=== PATIENT | female | born 1950 | race Caucasian/White ===

== ENCOUNTER 2017-02-25 13:16 | Outpatient (CLI) | payer OTHER ==
--- NOTE | 2017-03-08 14:24 | Mammography Report ---
DIGITAL SCREENING MAMMOGRAM: 02/25/2017 CLINICAL INDICATION: A 66-year-old for screening. The patient reports having had previous films in [place], [place], but films are not yet availab le for direct comparison. If they become available, an addendum will be issued. Otherwise, this steven l serve as a new baseline. TECHNIQUE: Routine CC and MLO projections were obtained of the breasts. FINDINGS: The breasts demonstrate scattered fibroglandular densities bilaterally. Coarse and puncta te, typically benign calcifications are present. No suspicious masses, clustered microcalcifications , or regions of architectural distortion are identified. IMPRESSION: BENIGN FINDINGS. RECOMMENDATION: Routine annual screening unless otherwise clinically indicated. BIRADS CATEGORY 2 - BENIGN FINDINGS. STANDARD QUALIFYING STATEMENTS 1. This examination was reviewed with the aid of Computer-Aided Detection (CAD). 2. A negative or benign imaging report should not delay biopsy if clinically suspicious findings are present. Consider surgical consultation if warranted. More than 5% of cancers are not identified by i maging. 3. Dense breasts may obscure an underlying neoplasm. JOB #: [id number] EXT JOB #:[id number]
== END 2017-02-25 13:17 | disposition home or self-care (01) ==
LOC: DI.N 13:16
PROVIDERS: ATTEND Family Medicine
DX: Z12.31 Encounter for screening mammogram for malignant neoplasm of breast (principal)
CPT/HCPCS: 77067

== ENCOUNTER 2019-04-07 08:33 | Outpatient (CLI) | payer BC ==
--- NOTE | 2019-04-07 12:41 | Mammography Report ---
Reason: SCREENING MAMMO Procedure Date: 04/07/2019 Accession Number: [id number] / [id number] Procedure: MGN - Screening Mammo Dig Bilat CPT Code: FULL RESULT: EXAM: Screening Mammo Dig Bilat DATE: 04/07/2019 8:57 AM CLINICAL HISTORY: Routine screening TECHNIQUE: (B) - Bilateral CC and MLO views were obtained. COMPARISON: 02/25/2017, 11/18/2015, 11/01/2015, and 04/13/2011 PARENCHYMAL PATTERN: (D) - The breasts demonstrate heterogeneously dense fibroglandular parenchyma bilaterally. FINDINGS: No significant interval change. Scattered benign-appearing calcifications are stable. There are no suspicious masses, micro-calcifications, or areas of distortion. IMPRESSION: Negative examination. BI-RADS category 1. RECOMMENDATION: (ANNUAL) - Recommend routine annual screening mammography. BI-RADS CATEGORY: (1) - Negative. STANDARD QUALIFYING STATEMENTS: 1. This examination was not reviewed with the aid of Computer-Aided Detection (CAD). 2. A negative or benign imaging report should not preclude biopsy if clinically suspicious findings are present. 3. Dense breasts may obscure an underlying neoplasm. 4. This examination was reviewed without the aid of 3D breast imaging (tomosynthesis).
== END 2019-04-07 08:34 | disposition home or self-care (01) ==
LOC: DI.N 08:33
PROVIDERS: ATTEND Nurse Practitioner
DX: Z12.31 Encounter for screening mammogram for malignant neoplasm of breast (principal)
CPT/HCPCS: 77067

== ENCOUNTER 2019-06-08 20:16 | Emergency (ER) | payer MEDICARE, BC ==
--- NOTE | 2019-06-08 20:31 | ED Physician Documentation ---
PD HPI ABD PAIN - Stated complaint Stated Complaint: RT FLANK PAIN, VOMITTING, CHILLS - Chief complaint Chief Complaint: Abd Pain - History obtained from History obtained from: Patient - History of Present Illness Timing - onset: Today Timing - duration: Days (1) Timing - details: Abrupt onset Severity Comments: severe Quality: Sharp, Pain, Other (R flak) Location: Other (R flank) Radiation: Other (R groin) Improved by: Other (heating pad at first then persistent) Associated symptoms: Nausea, Vomiting. No: Fever, Hematemesis, Diarrhea, Constipation, Melena, Hematochezia, Dysuria, Hematuria, Chest pain, Dizzy, Near syncope / syncope, Loss of appetite, Weight loss, Vaginal bleeding Similar symptoms before: Diagnosis (similar to when she had a kidney stone 10 years ago) Recently seen: Not recently seen - Treatment prior to arrival Treatment prior to arrival: alleve Review of Systems Ten Systems: 10 systems reviewed and negative Constitutional: denies: Fever, Chills Nose: reports: Reviewed and negative Throat: reports: Reviewed and negative GI: reports: Nausea, Vomiting. denies: Abdominal Pain, Abdominal Swelling, Constipation, Diarrhea, Hematemesis, Bloody / black stool : denies: Dysuria, Frequency, Hesitancy, Hematuria Skin: reports: Reviewed and negative Musculoskeletal: reports: Back pain. denies: Extremity pain, Extremity swelling, Joint swelling Neurologic: denies: Generalized weakness, Focal weakness, Numbness Endocrine: reports: Reviewed and negative Immunocompromised: reports: Reviewed and negative PD PAST MEDICAL HISTORY - Past Medical History Past Medical History: Yes - Present Medications Home Medications: Ambulatory Orders Medication Instructions Recorded Confirmed Ondansetron Odt [Zofran] 4 mg TL Q6H PRN #10 tablet 06/08/19 Oxycodone HCl/Acetaminophen 1 - 2 each PO Q6H PRN #14 tablet 06/08/19 [Percocet 5-325 mg Tablet] - Allergies Allergies/Adverse Reactions: Allergies Allergy/AdvReac Type Severity Reaction Status Date / Time No Known Drug Allergies Allergy Verified 06/08/19 20:50 PD ED PE NORMAL - Vitals Vital signs reviewed: Yes - General General: Alert and oriented X 3, No acute distress, Well developed/nourished - HEENT HEENT: Atraumatic, Pharynx benign - Neck Neck: Supple, no meningeal sign, No JVD - Cardiac Cardiac: RRR - Respiratory Respiratory: No respiratory distress - Abdomen Abdomen: Soft, Non tender, Non distended - Female Female : Deferred - Rectal Rectal: Deferred - Derm Derm: Normal color, Warm and dry, No rash - Neuro Neuro: Alert and oriented X 3 Eye Opening: Spontaneous Motor: Obeys Commands Verbal: Oriented GCS Score: 15 - Psych Psych: Normal mood, Normal affect PD ED PE EXPANDED - Back Back: Normal ROM, CVA TTP right. No: Vertebral tenderness, Soft tissue tenderness Results - Vitals Vitals: Vital Signs - 24 hr 06/08/19 06/08/19 06/08/19 20:22 21:33 22:31 Temperature 36.7 C Heart Rate 53 L 65 65 Respiratory 18 15 15 Rate Blood Pressure 159/84 H 117/64 141/73 H O2 Saturation 98 98 95 06/08/19 06/08/19 22:43 23:45 Temperature Heart Rate 54 L 60 Respiratory 15 15 Rate Blood Pressure 108/60 113/56 L O2 Saturation 95 96 Oxygen O2 Source Room air - Labs Labs: Laboratory Tests 06/08/19 06/08/19 06/08/19 20:40 20:40 20:40 WBC 11.1 H RBC 4.87 Hgb 14.3 Hct 44.3 MCV 91.0 MCH 29.4 MCHC 32.3 RDW 13.1 Plt Count 271 MPV 9.3 Neut # (Auto) 7.0 H Lymph # (Auto) 3.1 Morris # (Auto) 0.8 Eos # (Auto) 0.2 Baso # (Auto) 0.1 Absolute Nucleated RBC 0.00 Nucleated RBC % 0.0 Sodium 138 Potassium 3.7 Chloride 102 Carbon Dioxide 24 Anion Gap 12.0 BUN 14 Creatinine 0.9 Estimated GFR (MDRD) 62 L Glucose 232 H Lactic Acid 2.4 H Calcium 9.9 Total Bilirubin 0.7 AST 32 ALT 43 Alkaline Phosphatase 74 Total Protein 7.5 Albumin 4.3 Globulin 3.2 Albumin/Globulin Ratio 1.3 Lipase 68 H Urine Color Urine Clarity Urine pH Ur Specific Jackson Urine Protein Urine Glucose (UA) Urine Ketones Urine Occult Blood Urine Nitrite Urine Bilirubin Urine Urobilinogen Ur Leukocyte Esterase Urine RBC Urine WBC Ur Squamous Epith Cells Urine Bacteria Urine Mucus Ur Microscopic Review Urine Culture Comments 06/08/19 21:00 WBC RBC Hgb Hct MCV MCH MCHC RDW Plt Count MPV Neut # (Auto) Lymph # (Auto) Morris # (Auto) Eos # (Auto) Baso # (Auto) Absolute Nucleated RBC Nucleated RBC % Sodium Potassium Chloride Carbon Dioxide Anion Gap BUN Creatinine Estimated GFR (MDRD) Glucose Lactic Acid Calcium Total Bilirubin AST ALT Alkaline Phosphatase Total Protein Albumin Globulin Albumin/Globulin Ratio Lipase Urine Color YELLOW Urine Clarity CLEAR Urine pH 6.0 Ur Specific Jackson 1.025 Urine Protein NEGATIVE Urine Glucose (UA) >=1000 H Urine Ketones 15 H Urine Occult Blood MODERATE H Urine Nitrite NEGATIVE Urine Bilirubin NEGATIVE Urine Urobilinogen 0.2 (NORMAL) Ur Leukocyte Esterase NEGATIVE Urine RBC 11-25 H Urine WBC 0-3 Ur Squamous Epith Cells FEW Squamous Urine Bacteria Rare Urine Mucus Few Strands Ur Microscopic Review INDICATED Urine Culture Comments NOT INDICATED PD MEDICAL DECISION MAKING - ED course Complexity details: re-evaluated patient, considered differential, d/w patient, d/w family ED course: ddx- AAA, kidney stone, back muscle strain, pyelonephritis 68 y/o F with R flank pain consistent with a kidney stone. Given antiemetics, analgesics, labs and urine pending and will obtain CT CT confirms small 3mm Kidney stone at the R UPJ. No evidence of UTI on urine. Pt was nauseous after narcotics for pain thus given multiple doses of antiemetics and is now feeling better. Tolerating PO zofran. Her pain is controlled. I discussed plans for f/u to obtain Urology referral and pt given analgescis and antiemetics for home. Discussed return precautions in case of worsening or new concerning symptoms. Departure - Departure Disposition: 01 Home, Self Care Clinical Impression: Kidney stone, Pulmonary nodule Condition: Stable Record reviewed to determine appropriate education?: Yes Instructions: Kidney Stones Follow-Up: Tatum Arroyo ARNP, [employer] [Primary Care Provider] - Within 1 week Prescriptions: Ondansetron Odt [Zofran] 4 mg TL Q6H PRN #10 tablet PRN Reason: Nausea / Vomiting Oxycodone HCl/Acetaminophen [Percocet 5-325 mg Tablet] 1 - 2 each PO Q6H PRN #14 tablet PRN Reason: pain Comments: You have a Right sided 3mm kidney stone at the junction of your bladder which is causing your pain. This should pass on its own. Take ibuprofen or alleve as needed if pain is moderate and take percocet if pain is severe or not improving with NSAIDs. You can also take ondansetron as needed for nausea and or vomiting. If worsening symptoms or fever return to the ED. We found some incidental lung nodules and a liver lesion on your CT scan which may be benign but should be monitored and followed up by your regular doctor. Discharge Date/Time: 06/09/19 00:34
[2019-06-08] MEDS ORDERED: ONDANSETRON 4 MG/2 ML VIAL IVP STA (20:40)
[2019-06-08] MEDS ORDERED: MORPHINE 2 MG/ML CARPUJECT IVP STA (20:40)
[2019-06-08 20:50] LABS: BASOPHILS # (AUTO) 0.1 10^3/uL (0.0-0.1); BASOPHILS % (AUTO) 0.5 %; EOSINOPHILS # (AUTO) 0.2 10^3/uL (0.0-0.7); EOSINOPHILS % (AUTO) 1.5 %; HGB - HEMOGLOBIN 14.3 g/dL (12.0-16.0); LYMPHOCYTES # (AUTO) 3.1 10^3/uL (1.5-3.5); LYMPHOCYTES % (AUTO) 27.8 %; MEAN CORPUSCULAR HEMOGLOBIN 29.4 pg (27.0-31.0); MEAN CORPUSCULAR HGB CONC 32.3 g/dL (32.0-36.0); MEAN PLATELET VOLUME 9.3 fL (7.9-10.8); MONOCYTES # (AUTO) 0.8 10^3/uL (0.0-1.0); MONOCYTES % (AUTO) 7.2 %; NEUTROPHILS % (AUTO) 62.6 %; PLT - PLATELET COUNT 271 10^3/uL (130-450); RED BLOOD COUNT 4.87 10^6/uL (4.20-5.40); RED CELL DISTRIBUTION WIDTH 13.1 % (12.0-15.0); WHITE BLOOD COUNT 11.1 x10^3/uL (4.8-10.8)
[2019-06-08 21:03] LABS: ALBUMIN 4.3 g/dL (3.2-5.5); ALBUMIN/GLOBULIN RATIO 1.3 (1.0-2.2); BILIRUBIN,TOTAL 0.7 mg/dL (0.2-1.0); CALCIUM 9.9 mg/dL (8.5-10.3); CREATININE 0.9 mg/dL (0.4-1.0); TOTAL PROTEIN 7.5 g/dL (6.7-8.2)
[2019-06-08 21:17] LABS: BILIRUBIN,URINE NEGATIVE (NEGATIVE); GLUCOSE, URINE (UA) >=1000 mg/dL (NEGATIVE); KETONES,URINE (UA) 15 mg/dL (NEGATIVE); LEUKOCYTE ESTERASE, URINE NEGATIVE (NEGATIVE); NITRITE,URINE NEGATIVE (NEGATIVE); OCCULT BLOOD,URINE MODERATE (NEGATIVE); PROTEIN,URINE NEGATIVE (NEGATIVE); UROBILINOGEN,URINE 0.2 (NORMAL) E.U./dL (NORMAL)
[2019-06-08] MEDS ORDERED: HYDROmorphone 1 MG/ML CARPUJECT IVP STA (21:24)
[2019-06-08 21:36] LABS: CLARITY,URINE CLEAR (CLEAR)
[2019-06-08 21:37] LABS: BACTERIA,URINE Rare /HPF (None Seen); SQUAMOUS EPITHELIAL CELL,UR FEW Squamous (<= Few)
[2019-06-08 21:38] LABS: MUCUS,URINE Few Strands
--- NOTE | 2019-06-08 21:52 | CT Report ---
Reason: R flank pain, suspected kidney stone Procedure Date: 06/08/2019 Accession Number: [id number] / [id number] Procedure: CT - Abdomen/Pelvis WO CPT Code: Final Report FULL RESULT: EXAM: CT ABDOMEN AND PELVIS (CT KUB) EXAM DATE: 06/08/2019 09:09 PM. CLINICAL HISTORY: R flank pain, suspected kidney stone. COMPARISONS: None. TECHNIQUE: Routine axial helical CT imaging was performed through the abdomen and pelvis without IV contrast. Reconstructions: Coronal and sagittal. In accordance with CT protocol optimization, one or more of the following dose reduction techniques were utilized for this exam: automated exposure control, adjustment of mA and/or KV based on patient size, or use of iterative reconstructive technique. FINDINGS: A 6 mm subpleural nodule is partially imaged in the left lower lobe. Subpleural reticulations are seen bilaterally. Linear calcifications are seen in the lingula measuring up to 1 cm. Bibasilar dependent atelectasis is also seen. The visible heart is normal in size. There is no pericardial effusion. A somewhat irregular hypoattenuating lesion is seen in the left hepatic lobe measuring 2.1 x 1.3 cm. A subjacent subcapsular hypoattenuating lesion is also seen which measures 0.8 x 1.3 cm no additional intrahepatic lesions are seen on this noncontrast exam. There is no intrahepatic or extrahepatic biliary dilatation. The gallbladder is normal. Multiple calcifications are seen throughout the spleen, likely representing calcified granulomas. The pancreas is within normal limits. The adrenal glands are normal. Mild right hydronephrosis is seen with pronounced dilatation of the proximal right ureter/extrarenal pelvis and more mild dilatation of the remaining portion of the ureter. A 3 mm calculus is seen at the right ureteropelvic junction. No additional ureteral calculi are seen on the right. There are no right renal calculi. Mild right perinephric fat stranding is seen. No calculi are seen in the left renal collecting system. There is no left hydronephrosis. No left perinephric fat stranding is seen. 2 metallic surgical clips are seen in the pelvis. Multiple phleboliths are seen in the pelvis. The bladder is largely decompressed. The intestines are normal in caliber and position. There is diverticulosis in the distal descending and sigmoid colon without evidence of diverticulitis. The appendix is not visible. No free intraperitoneal air or pneumatosis is seen. There is no ascites. No lymphadenopathy is seen. The abdominal aorta is normal in course and caliber. Atherosclerotic calcifications are incidentally seen. Degenerative changes are seen in the imaged portions of the thoracolumbar spine. No acute fracture or dislocation is seen. IMPRESSION: 1. 3 mm calculus at the right ureteral vesicular junction resulting in right hydroureteronephrosis and mild perinephric fat stranding. 2. No additional calculi in the renal collecting systems. 3. Hypoattenuating lesions in the left hepatic lobe. Consider further evaluation of these lesions with an MRI abdomen with and without contrast. 4. Diverticulosis. 5. Calcified left pulmonary nodules, as above. Recommend follow-up of the described nodule(s) according to the following guidelines: Fleischner Society Recommendations 2017 MacMahon et al. Radiology 2017 Solid Nodules-Low Risk Patients: <6 mm (single or multiple) - No routine follow-up* 6-8 mm (single) -CT at 6-12 months, then consider CT at 18-24 months 6-8mm (multiple) -CT at 3-6 months, then consider at CT 18-24 months >8 mm (single) -Consider CT, PET/CT, or tissue sampling at 3 months >8 mm (multiple) -CT at 3-6 months, then consider CT at 18-24 months Solid Nodules-High Risk Patients: <6 mm (single or multiple) -Optional CT at 12 months* 6-8 mm (single) -CT at 6-12 months, then CT at 18-24 months 6-8mm (multiple) -CT at 3-6 months, then CT at 18-24 months >8 mm (single) -Consider CT, PET/CT, or tissue sampling at 3 months >8 mm (multiple) -CT at 3-6 months, then at 18-24 months *Nodules < 6mm do not require routine follow-up, but suspicious nodule morphology, upper lobe location, or both may warrant 12 month follow-up Subsolid nodules: <6 mm (single, GG or part solid) -No routine follow-up >=6 mm (single GG) -CT at 6-12 months to confirm, then CT q2 years until 5 years >=6 mm (single part solid) -CT at 3-6 months to confirm, if unchanged and solid <6mm, annual CT for 5 years <6 mm (multiple GG or part solid) -CT at 3-6 months. If stable, consider CT at 2 and 4 years >=6 mm (multiple GG or part solid) -CT at 3-6 months. Subsequent management based on most suspicious nodule(s). Consider follow-up at 2 and 4 years for certain suspicious nodules <6mm. If solid component develops or growth, consider resection. RADIA
[2019-06-08] MEDS ORDERED: PROCHLORPERAZINE 10 MG/2 ML VIAL IVP STA (22:11)
[2019-06-08 23:45] VITALS: BP 113/56
[2019-06-09] MEDS ORDERED: ONDANSETRON 4 MG/2 ML VIAL IVP STA (00:10)
[2019-06-09] MEDS ORDERED: oxyCODONE/ACET 5/325 Prepack 4 PO STA (00:12)
[2019-06-09] MEDS ORDERED: ONDANSETRON ODT 4 MG Prepack 2 TL PRN (00:12)
== END 2019-06-09 00:34 | disposition home or self-care (01) ==
LOC: ED 20:16
DX: N13.2 Hydronephrosis with renal and ureteral calculous obstruction (principal); R91.8 Other nonspecific abnormal finding of lung field; K76.9 Liver disease, unspecified; R11.2 Nausea with vomiting, unspecified
CPT/HCPCS: 36415; 74176; 80053; 81001; 83605; 83690; 85025; 99284; 99285; J1170; 81003; 87086

== ENCOUNTER 2019-07-10 12:55 | Outpatient (CLI) | payer BC, MEDICARE ==
[2019-07-10 13:33] LABS: HB2 TOTAL 15.6 g/dL; HEMOGLOBIN A1C 1.34 g/dL
== END 2019-07-10 12:56 | disposition home or self-care (01) ==
LOC: LAB 12:55
PROVIDERS: ATTEND Nurse Practitioner
DX: R73.9 Hyperglycemia, unspecified (principal)
CPT/HCPCS: 36415; 83036

== ENCOUNTER 2019-07-11 07:20 | Outpatient (CLI) | payer BC, MEDICARE ==
[~2019-07-11 07:20] MED LIST: GADOBUTROL 10 MMOL/10 ML VIAL ONE
[2019-07-11] MEDS ORDERED: GADOBUTROL 10 MMOL/10 ML VIAL IVP ONE (08:54)
--- NOTE | 2019-07-13 04:30 | MRI Report ---
Reason: LIVER LESION Procedure Date: 07/11/2019 Accession Number: [id number] / [id number] Procedure: MRI - Abdomen W/WO CPT Code: Final Report FULL RESULT: EXAM: MR ABDOMEN WITH AND WITHOUT CONTRAST (MR PANCREAS AND MRCP) EXAM DATE: 07/11/2019 07:36 AM. CLINICAL HISTORY: LIVER LESION. COMPARISON: ABDOMEN/PELVIS W/O 06/08/2019 9:08 PM. TECHNIQUE: Multiplanar breath-hold T1, T2, and DWI sequences obtained through the pancreas and abdomen on an MR scanner. Dedicated 2D and 3D MRCP sequences obtained through the biliary and pancreatic ducts. Images obtained before and after administration of intravenous contrast. Multiphase postcontrast sequences obtained through the pancreas. FINDINGS: Lung Bases: Unremarkable. Liver: The liver has normal size, morphology and signal. T2 hyperintense/T1 hypointense lesions are seen in the left hepatic lobe which measure 1.5 x 1.5 cm and 0.8 x 1.0 cm, respectively. These lesions do not enhance following contrast administration. No internal septations or solid component are seen. There is no diffusion restriction. No additional intrahepatic lesions are seen. The liver is enlarged measuring 21.5 cm in length. There is diffuse loss of signal on the opposed phase images consistent with hepatic steatosis. Gallbladder: The gallbladder is partially distended and appears normal with no wall thickening or stone. Bile Ducts: No intrahepatic or extrahepatic duct dilatation. Pancreas: The pancreas appears normal with no mass. No pancreatic ductal dilatation is seen. Spleen: The spleen appears normal. Kidneys: There is a right extrarenal pelvis. Mild perinephric fat stranding is seen. There is no evidence of hydronephrosis or renal mass. Adrenals: The adrenals appear normal. Bowel: There is a small hiatal hernia. The visible segments of the small bowel and colon appear normal with no inflammation or obstruction. Retroperitoneum: The retroperitoneal structures appear normal with no mass or lymphadenopathy. Other: The marrow signal intensity is normal. IMPRESSION: 1. T2 hyperintense/T1 hypointense lesions in the left hepatic lobe do not enhance and are consistent with small cysts. 2. Hepatic steatosis. RADIA
== END 2019-07-11 07:21 | disposition home or self-care (01) ==
LOC: DI 07:20
PROVIDERS: ATTEND Nurse Practitioner
DX: K76.9 Liver disease, unspecified (principal); K76.0 Fatty (change of) liver, not elsewhere classified
CPT/HCPCS: 74183

== ENCOUNTER 2019-07-20 14:55 | Outpatient (CLI) | payer BC, MEDICARE ==
--- NOTE | 2019-07-21 08:49 | XRAY Report ---
Reason: MULTIPLE NODULES OF LUNG Procedure Date: 07/20/2019 Accession Number: [id number] / [id number] Procedure: XRN - Chest 2 View X-Ray CPT Code: 38279 Final Report FULL RESULT: EXAM: CHEST RADIOGRAPHY 2 VIEWS EXAM DATE: 07/20/2019. CLINICAL HISTORY: MULTIPLE NODULES OF LUNG. COMPARISON: Abdomen and pelvis CT done 06/08/2019. TECHNIQUE: PA and lateral views. FINDINGS: Lungs/Pleura: Normal vasculature. Calcification in the lingula is again demonstrated. The 6 mm noncalcified subpleural nodule in the left lower lobe is not visible on this examination, nor is the subpleural reticulation described on the CT. Curvilinear opacities of the right apex are probably artifact from overlying clothing. Mediastinum: Normal cardiac and mediastinal contours. Bones: Mild degenerative changes of the spine. Healed left clavicle fracture. IMPRESSION: Linear calcification in the lingula is unchanged from 06/08/2019, probably from previous granulomatous disease. The other pulmonary findings described on the CT are not visible on standard radiography, no other radiographic cardiopulmonary abnormality evident on the current examination. RADIA
== END 2019-07-20 14:56 | disposition home or self-care (01) ==
LOC: DI.N 14:55
PROVIDERS: ATTEND Nurse Practitioner
DX: J98.4 Other disorders of lung (principal)
CPT/HCPCS: 71046

== ENCOUNTER 2019-10-23 08:27 | Outpatient (CLI) | payer BC, MEDICARE ==
[2019-10-23 08:49] LABS: CALCIUM 9.6 mg/dL (8.5-10.3); CREATININE 0.7 mg/dL (0.4-1.0)
[2019-10-23 08:59] LABS: HB2 TOTAL 15.5 g/dL; HEMOGLOBIN A1C 1.04 g/dL; HEMOGLOBIN A1C % 8.3 % (4.6-6.2)
[2019-10-23 10:01] LABS: CREATININE,URINE 50.9 mg/dL; MICROALBUM/CREATININE RATIO,UR 3.9 ug/mg (<30.0); MICROALBUMIN,URINE 0.2 mg/dL (0-300.0)
== END 2019-10-23 08:28 | disposition home or self-care (01) ==
LOC: LAB 08:27
PROVIDERS: ATTEND Nurse Practitioner
DX: E11.9 Type 2 diabetes mellitus without complications (principal)
CPT/HCPCS: 36415; 80048; 82043; 82570; 83036